=== PATIENT | male | born 2000 | race Caucasian/White ===

== ENCOUNTER 2021-04-08 20:12 | Emergency (ER) | payer OTHER ==
[~2021-04-08] VITALS: Ht 185.4 cm; Wt 81.8 kg
[2021-04-08 20:33] VITALS: TEMP 98.2
[2021-04-08] MEDS ORDERED: BENADRYL25 M2 PO (21:49)
[2021-04-08] MEDS ORDERED: PREDNISONE20 MG PO (21:49)
[2021-04-08] MEDS ORDERED: PEPCID 20MG TAB20 MG PO (21:49)
[2021-04-08 22:10] VITALS: BP 130/79; PULSE 59
== END 2021-04-08 22:10 | disposition home or self-care (01) ==
LOC: COL.ER 20:12
DX: L50.9 Urticaria, unspecified (principal)
CPT/HCPCS: J1200; J2930

== ENCOUNTER 2021-06-01 20:58 | Emergency (ER) | payer OTHER ==
[~2021-06-01] VITALS: Ht 185.4 cm; Wt 79.5 kg
[~2021-06-01 20:58] MED LIST: BENADRYL25 M2 PO; PEPCID 20MG TAB20 MG PO; PREDNISONE20 MG PO
[2021-06-01 21:12] VITALS: TEMP 98.4
[2021-06-01 21:42] VITALS: BP 138/76; PULSE 75
== END 2021-06-01 21:44 | disposition home or self-care (01) ==
LOC: COL.ER 20:58
DX: S61.211A Laceration without foreign body of left index finger without damage to nail, initial encounter (principal); W26.8XXA Contact with other sharp object(s), not elsewhere classified, initial encounter; Y99.0 Civilian activity done for income or pay